=== PATIENT | female | born 1945 | race Caucasian/White ===

== ENCOUNTER 2018-10-16 16:05 | Observation (INO) ==
--- NOTE | 2018-10-16 17:00 | Emergency Department Note ---
Disposition Clinical Impression: Cellulitis of left ankle, Failure of outpatient treatment Disposition: Admitted As Inpatient Condition: Fair Time of Disposition: 17:59 General Adult HPI - General Chief complaint: ED Extremity Injury, Lower Stated complaint: Left foot cellulitis/infection Time Seen by Provider: 10/16/18 16:17 Source: patient Limitations: no limitations Nursing Notes Reviewed: Yes Vital Signs Reviewed: Yes - History of Present Illness HPI Narrative: Presents with redness and pain on the medial and posterior aspect of the left ankle which happened and began 7 weeks ago with an injury to this area and has seen wound care and been on multiple rounds of antibiotics including being seen here yesterday and placed on Augmentin however the redness has extended beyond the lines drawn around the ankle. No fevers or vomiting. No history of diabetes. No respiratory symptoms. Social history: Stopped smoking in the past, no alcohol Pain Scale: 10 - Related Data Home Medications Medication Instructions Recorded Confirmed Lisinopril [Zestril] 2.5 mg PO DAILY 12/07/14 09/10/18 Rosuvastatin Calcium [Crestor] 40 mg PO HS 12/07/14 09/10/18 Albuterol Sulfate [Proair Hfa] 2 puff IH Q4H PRN 03/21/18 09/10/18 Aspirin [Lo-Dose Aspirin EC] 81 mg PO HS 03/21/18 09/10/18 Levothyroxine [Synthroid] 50 mcg PO 0630 03/21/18 09/10/18 Meclizine HCl [Wal-Dram 2] 25 mg PO DAILY PRN 03/21/18 09/10/18 Ranitidine HCl [Acid Manager Assessment] 150 mg PO BID 03/21/18 09/10/18 Acetaminophen w/Cod 300-30 mg 1 each PO Q8HR PRN 09/10/18 09/10/18 [Tylenol w/Codeine #3] Fluticasone Propionate [Flonase 1 ml NS BID 09/10/18 09/10/18 Allergy Relief] Previous Rx's Medication Instructions Recorded Tamoxifen Citrate 20 mg PO DAILY #30 tablet 07/16/18 cephALEXin [Keflex] 500 mg PO QID #40 capsule 09/06/18 Amoxicillin/Clavulanate [Augmentin] 875 mg PO BIDWM #14 tablet 10/15/18 Allergies Allergy/AdvReac Type Severity Reaction Status Date / Time Erythromycin Base AdvReac Severe Palpitation Verified 09/10/18 19:23 s Sulfa (Sulfonamide AdvReac Severe Nausea Verified 09/10/18 19:23 Antibiotics) All systems ED: reviewed and negative except as stated. Past Medical History - Past Medical History Medical history: Reports: asthma, cancer, COPD, GERD, hyperlipidemia, hypertension Surgical history: Reports: cataract Psychiatric history: Reports: no psych history - Social History Smoking Status: Former smoker Smokeless Tobacco Status: No Alcohol use: Reports: none Drug use: Reports: none Physical Exam CONSTITUTIONAL: Alert and oriented X3, well-nourished, well appearing, in no apparent distress HEAD: Normocephalic; atraumatic. EYES: PERRL, no scleral icterus. NOSE: The nose is normal in appearance without rhinorrhea RESP: Normal chest excursion with respiration; breath sounds clear and equal bilaterally; no wheezes, rhonchi, or rales CARD: Regular rhythm, without murmurs, rub or gallop ABD: Non-distended; non-tender, soft,without rigidity, rebound or guarding SKIN: Normal for age and race; warm and dry; no apparent lesions Extremities: There is a open ulcerated area on the medial aspect of the left ankle extending around to the posterior aspect but there is no exposed bone. No purulent drainage from the area. There is surrounding erythema which has extended beyond the borders of the magic marker which is drawn on the ankle yesterday. I did discuss the case with Dr. Burgos as he did see the patient yesterday who feels the wound is worse regarding the cellulitis - General Limitations: no limitations General appearance: alert Course Vital Signs Temperature 98.0 F 10/16/18 16:06 Pulse Rate 87 10/16/18 16:06 Respiratory Rate 14 10/16/18 16:06 Blood Pressure 136/82 10/16/18 16:06 O2 Sat by Pulse Oximetry 96 10/16/18 16:06 Temperature 98.0 F 10/16/18 16:18 Pulse Rate 78 10/16/18 18:04 Respiratory Rate 18 10/16/18 18:04 Blood Pressure 147/61 10/16/18 18:04 O2 Sat by Pulse Oximetry 99 10/16/18 18:04 Oxygen Delivery Oxygen Delivery Room Air Medical Decision Making - MDM Narrative Medical decision making narrative: The patient has failed outpatient antibiotics and will be admitted. Prior to admission I did write for labs and also did an x-ray. The patient is able to walk but only on her toes. No systemic signs of infection. 1705 I did review the x-ray result. Labs are pending. I spoke with the hospitalist. The patient will be admitted to the service. I will start the patient on IV vancomycin. Looking at her old records looks like she has some evidence of leticia al failure with a creatinine level ranging from 1.2 up to 1.3 1745 - Medical Records Medical records reviewed: Yes I reviewed the patient's medical records. - Lab Data Lab results reviewed: Yes I reviewed the patient's lab results. Result diagrams: 10/16/18 17:13 10/16/18 17:13 Lab Results 10/16/18 10/16/18 Range/Units 17:13 17:13 WBC 6.9 (4.3-11.1) K/mcL RBC 3.46 L (3.82-4.97) M/mcL Hgb 11.0 L (11.5-15.4) g/dL Hct 35.4 (35.3-44.9) % MCV 102.3 H (83.0-100.0) fL MCH 31.8 (28.0-33.3) pg MCHC 31.1 L (31.6-35.5) g/dL RDW 12.4 (11.5-14.5) % Plt Count 186 (140-400) K/mcL MPV 9.4 (9.4-12.4) fL Sodium 142 (136-145) mEq/L Potassium 4.2 (3.5-5.1) mEq/L Chloride 105 (98-107) mEq/L Carbon Dioxide 24 (23-29) mEq/L BUN 19 (8-23) mg/dL Creatinine 1.29 H (0.60-1.20) mg/dL Est GFR ( Amer) 49 L (> 60) Est GFR (Non-Af Amer) 40 L (> 60) BUN/Creatinine Ratio 15 (6-26) Glucose 90 (70-105) mg/dL Calculated Osmolality 296 (280-300) Calcium 9.5 (8.6-10.3) mg/dL - Radiology Data Radiology results reviewed: Yes I reviewed the patient's radiology results.
[2018-10-16] MEDS ORDERED: MOM Conc 10 ML UD.LIQ PO PRN (17:42)
[2018-10-16] MEDS ORDERED: Acetaminophen 325 MG TABLET PO PRN (17:42)
[2018-10-16] MEDS ORDERED: Naloxone 0.4 MG/ML INJ IVP PRN (17:42)
[2018-10-16] MEDS ORDERED: *HR* Promethazine 25 MG/ML VIAL IVP PRN (17:42)
[2018-10-16] MEDS ORDERED: Mag Hydrox/Al Hydrox/Simeth 30 ML UDC PO PRN (17:42)
[2018-10-16] MEDS ORDERED: Ondansetron 4 MG/2 ML VIAL IVP PRN (17:42)
[2018-10-16 17:45] LABS: Calcium 9.5 mg/dL (8.6-10.3); Potassium 4.2 mEq/L (3.5-5.1)
[2018-10-16 17:48] LABS: Hematocrit 35.4 % (35.3-44.9); Mean Corpuscular HGB Conc 31.1 g/dL (31.6-35.5); Mean Corpuscular Hemoglobin 31.8 pg (28.0-33.3); Mean Corpuscular Volume 102.3 fL (83.0-100.0); Mean Platelet Volume 9.4 fL (9.4-12.4); Platelet Count 186 K/mcL (140-400); Red Blood Count 3.46 M/mcL (3.82-4.97); Red Cell Distribution Width 12.4 % (11.5-14.5); White Blood Count 6.9 K/mcL (4.3-11.1)
--- NOTE | 2018-10-16 18:09 | Internal Med History&Physical ---
Date of Encounter: 10/16/18 Time of Encounter: 18:01 Internal Medicine - H&P: HPI Admitted From: Home Plans for Post Hospital Care: Home History of present illness: Ms. Zamarripa is a 73 year old female with past medical history of chronic kidney di sease, hypertension, hyperlipidemia, and hypothyroidism presented with redness and swelling of left ankle. Patient suffered a trauma to the left ankle about 2 months ago, she has been seen at [facility], where the wound was cleaned and sutured. The stitches was removed later and she was seen by security delivery specialist there. She noticed redness on and off and has been tried several different oral abx. She was seen at this ED yesterday for left ankle cellulitis and was prescribed with oral Augmentin, however, she noticed increased the size of red area and decided to come back for further evaluation. She reported absence of purulent drainage, fever, chills, or night sweats. In the ED, patient vital signs were stable, x-ray of left ankle showed negative of foreign body or subcutaneous gas. She received 1 dose of vancomycin and will be admitted for further evaluation and management. She will be full code while in the hospital. Past Med Surg Social Fam HX - Past Medical History Medical history: asthma, cancer, COPD, GERD, hyperlipidemia, hypertension Additional medical history: hx br ca lt sided lumpectomy Psychiatric history: no psych history - Past Surgical History Surgical History: cataract Additional surgical history: lymph node removal, and lumpectomy on left breast. patial hysterectomy - Social History Smoking Status: Former smoker Smokeless Tobacco Status: No Alcohol use: none Drug use: none Internal Medicine - H&P: Meds Lisinopril [Zestril] 2.5 mg PO DAILY 12/07/14 [History] Rosuvastatin Calcium [Crestor] 40 mg PO HS 12/07/14 [History] Albuterol Sulfate [Proair Hfa] 2 puff IH Q4H PRN 03/21/18 [History] Aspirin [Lo-Dose Aspirin EC] 81 mg PO HS 03/21/18 [History] Levothyroxine [Synthroid] 50 mcg PO 0630 03/21/18 [History] Meclizine HCl [Wal-Dram 2] 25 mg PO DAILY PRN 03/21/18 [History] Ranitidine HCl [Acid Deicer Repairer Electric] 150 mg PO BID 03/21/18 [History] Tamoxifen Citrate 20 mg PO DAILY #30 tablet 07/16/18 [Rx] cephALEXin [Keflex] 500 mg PO QID #40 capsule 09/06/18 [Rx] Acetaminophen w/Cod 300-30 mg [Tylenol w/Codeine #3] 1 each PO Q8HR PRN 09/10/18 [History] Fluticasone Propionate [Flonase Allergy Relief] 1 ml NS BID 09/10/18 [History] Amoxicillin/Clavulanate [Augmentin] 875 mg PO BIDWM #14 tablet 10/15/18 [Rx] Allergy/AdvReac Type Severity Reaction Status Date / Time Erythromycin Base AdvReac Severe Palpitation Verified 09/10/18 19:23 s Sulfa (Sulfonamide AdvReac Severe Nausea Verified 09/10/18 19:23 Antibiotics) All Systems PM: A 10-system review of systems was performed and is negative for pertinent findings except as documented above in the HPI. Review of systems: REVIEW OF SYSTEMS: CONSTITUTIONAL: No weight loss, fever, chills, weakness or fatigue. HEENT: Eyes: No visual loss, blurred vision, double vision or yellow sclerae. Ears, Nose, Throat: No hearing loss, sneezing, congestion, runny nose or sore throat. SKIN: No rash or itching. CARDIOVASCULAR: No chest pain, chest pressure or chest discomfort. No palpitations or edema. RESPIRATORY: No shortness of breath, cough or sputum. GASTROINTESTINAL: No anorexia, nausea, vomiting or diarrhea. No abdominal pain or blood. GENITOURINARY: No dysuria, urgency, or frequency. NEUROLOGICAL: No headache, dizziness, syncope, paralysis, ataxia, numbness or tingling in the extremities. No change in bowel or bladder control. MUSCULOSKELETAL: see HPI. HEMATOLOGIC: No anemia, bleeding or bruising. LYMPHATICS: No enlarged nodes. No history of splenectomy. PSYCHIATRIC: No history of depression or anxiety. ENDOCRINOLOGIC: No reports of sweating, cold or heat intolerance. No polyuria or polydipsia. - Constitutional Vitals: Temp Pulse Resp BP Pulse Ox 98.0 F 87 14 136/82 96 10/16/18 16:18 10/16/18 16:18 10/16/18 16:18 10/16/18 16:18 10/16/18 16:18 General appearance: Present: A&O X 3 Exam: PHYSICAL EXAMINATION: GENERAL APPEARANCE: The patient is alert, oriented and in no acute distress. HEENT: Head is normocephalic. The sinuses are nontender. Pupils are equal and reactive. The nares are patent. Oropharynx clear without lesions. NECK: Supple without lymphadenopathy. HEART: Regular rate and rhythm. LUNGS: No crackles or wheezes are heard. ABDOMEN: Soft, nontender, nondistended with good bowel sounds heard. Inguinal area is normal. EXTREMITIES: left ankle wound with granulation tissue exposed to air located at the medial side of ankle, extended to the posterior. NEUROLOGICAL: Gross nonfocal. SKIN: Warm and dry without any rash. Internal Med - H&P Results - Labs CBC & Chem 7: 10/16/18 17:13 10/16/18 17:13 Labs: Short CBC 10/16/18 Range/Units 17:13 WBC 6.9 (4.3-11.1) K/mcL Hgb 11.0 L (11.5-15.4) g/dL Hct 35.4 (35.3-44.9) % Plt Count 186 (140-400) K/mcL BMP 10/16/18 17:13 Sodium 142 Potassium 4.2 Chloride 105 Carbon Dioxide 24 BUN 19 Creatinine 1.29 H Glucose 90 Calcium 9.5 - Impressions ITS Impressions Ankle X-Ray 10/16/18 16:51 IMPRESSION: 1. No evidence of soft tissue gas. No radiopaque foreign body. 2. No acute osseus abnormality. 3. Achilles tendinopathy with Ugo deformity of the calcaneus. D/ / 10/16/2018 17:12:21 Yuan Lilly MD / susanay Interpreting Provider: Yuan Lilly MD - Assessment and Plan (1) Ankle cellulitis Current Visit: Yes Status: Acute Assessment and plan: Blood culture obtained. CBC and BMP ordered in the ED. Continue IV vancomycin, pharmacy to dose based on renal function. Wound care consult. (2) Wound of ankle Current Visit: No Status: Acute Assessment and plan: Same as above. Qualifiers: Encounter type: initial encounter Laterality: left Qualified Code(s): S91.002A - Unspecified open wound, left ankle, initial encounter (3) Essential hypertension Current Visit: No Status: Chronic Assessment and plan: Blood pressure controlled currently, continue home medication. (4) Mixed hyperlipidemia Current Visit: No Status: Chronic Assessment and plan: Continue home medication. (5) CKD (chronic kidney disease), stage III Current Visit: No Status: Chronic Assessment and plan: Stable, creatinine at the baseline. (6) Hypothyroidism Current Visit: No Status: Acute Assessment and plan: Stable, continue home medication. Qualifiers: Hypothyroidism type: unspecified Qualified Code(s): E03.9 - Hypothyroidism, unspecified (7) Breast cancer Current Visit: No Status: Acute Assessment and plan: Stable, continue home medication tamoxifen Qualifiers: Breast location: unspecified site of breast Estrogen receptor status: unspecified Patient sex: female Laterality: unspecified laterality Qualified Code(s): C50.919 - Malignant neoplasm of unspecified site of unspecified female breast (8) DVT prophylaxis Current Visit: Yes Status: Acute Assessment and plan: Heparin subcutaneous - Time Spent With Patient Total time spent is greater than 50% in coordination of care (as documented) at patient's floor/unit and/or counseling patient: Greater than 35 minutes
[2018-10-16] MEDS: *HR* Heparin 5,000 UNIT/ML VIAL SQ SCH (21:51)
[2018-10-17] MEDS: *HR* Heparin 5,000 UNIT/ML VIAL SQ SCH ×2 (06:42→17:53)
--- NOTE | 2018-10-17 09:22 | Internal Med Progress Note ---
Hospitalist Progress Note - Encounter Date of Encounter: 10/17/18 Time of Encounter: 09:49 - Subjective Interval History: Patient seen and examined this morning except. No acute overnight events. Afebrile hemodynamically stable. Denies any fever or chills nausea vomiting or diarrhea. Still has some pain in the right lower extremity associated redness and swelling of ankle. - Exam Vitals: Temp Pulse Resp BP Pulse Ox 98.2 F 74 16 116/72 95 10/17/18 07:12 10/17/18 07:12 10/17/18 07:12 10/17/18 07:12 10/17/18 07:12 Exam: General: In no acute distress. Respiratory exam: CTAB. no accessory muscle use, rales, rhonchi, wheezes Cardiovascular exam: RRR, +S1, +S2. no murmur, gallop, rubs. GI/Abdominal exam: Non-tender, Non-distended, normal bowel sounds, soft, no peritoneal signs. Extremities exam: pulses palpable in b/l lower extremities. no calf tenderness. left ankle wound with granulation tissue at the medial side of ankle with associated warmth, redness and swelling. minimal drainage. 6x8 cm Neurological exam: CN II-XII intact, AO X3, no focal deficits. Skin exam: as above - Assessment and Plan (1) Breast cancer Current Visit: No Status: Acute (2) Hypothyroidism Current Visit: No Status: Acute (3) CKD (chronic kidney disease), stage III Current Visit: No Status: Chronic (4) Essential hypertension Current Visit: No Status: Chronic (5) Mixed hyperlipidemia Current Visit: No Status: Chronic (6) Wound of ankle Current Visit: No Status: Acute (7) Ankle cellulitis Current Visit: Yes Status: Acute (8) DVT prophylaxis Current Visit: Yes Status: Acute - Summary of Assessment and Plan Summary of Assessment and Plan: Assessment Acute Ankle cellulitis Lt ankle wound Chronic HTN HLD CKD3 Hypothyroid h/o breast cancer Plan - Started on vancomycin empirically. recently treated with augmentin which she took for day. Also got cipro before about 1 month ago. appears she was also prescribe docy and keflex. - Blood culture obtained. Will get wound culture. Last one grew E fecalis on 09/13 - Continue IV vancomycin. Will start cefepime as well for now given CKD. Obtain CT of foot. - Wound care consult. - c/w home lisinopril, thyroxin, tamoxifen, aspirin, crestor - Heparin subcutaneous for dvt ppx. Internal Medicine: Result - Labs CBC & Chem 7: 10/16/18 17:13 10/16/18 17:13 Labs: Short CBC 10/16/18 Range/Units 17:13 WBC 6.9 (4.3-11.1) K/mcL Hgb 11.0 L (11.5-15.4) g/dL Hct 35.4 (35.3-44.9) % Plt Count 186 (140-400) K/mcL BMP 10/16/18 17:13 Sodium 142 Potassium 4.2 Chloride 105 Carbon Dioxide 24 BUN 19 Creatinine 1.29 H Glucose 90 Calcium 9.5 - Impressions Impressions Ankle X-Ray 10/16/18 16:51 IMPRESSION: 1. No evidence of soft tissue gas. No radiopaque foreign body. 2. No acute osseus abnormality. 3. Achilles tendinopathy with Ugo deformity of the calcaneus. D/ / 10/16/2018 17:12:21 Yuan Lilly MD / [email or web address] Interpreting Provider: Yuan Lilly MD Consult Discharge Plan - Plan Referrals: Zohra Fields APN [Primary Care Provider] - (1) Breast cancer Qualifiers: Breast location: unspecified site of breast Estrogen receptor status: unspecified Patient sex: female Laterality: unspecified laterality Qualified Code(s): C50.919 - Malignant neoplasm of unspecified site of unspecified female breast (2) Hypothyroidism Qualifiers: Hypothyroidism type: unspecified Qualified Code(s): E03.9 - Hypothyroidism, unspecified (6) Wound of ankle Qualifiers: Encounter type: initial encounter Laterality: left Qualified Code(s): S91.002A - Unspecified open wound, left ankle, initial encounter
[2018-10-17] MEDS: Cefepime HCl 1,000 MG in Water for inj. (sterile) 10 ML IVP SCH ×2 (10:47→23:10)
[2018-10-17] MEDS ORDERED: 0.9 % Sodium Chloride 1,000 ML IVC SCH (11:45)
[2018-10-17] MEDS ORDERED: Cefepime HCl 1,000 MG in Water for inj. (sterile) 10 ML IVP SCH (16:00)
[2018-10-17] MEDS: Aspirin Enteric Coated 81 MG Tablet PO SCH (20:30)
[2018-10-17] MEDS ORDERED: Famotidine 20 MG TABLET PO SCH (21:00)
[2018-10-18 05:19] LABS: Basophils % 0.8 %; Eosinophils # 0.4 K/mcL (0.0-0.6); Eosinophils % 6.9 %; Hematocrit 30.7 % (35.3-44.9); Hemoglobin 9.9 g/dL (11.5-15.4); Immature Granulocytes % 0.4 % (0-4); Lymphocytes % 38.5 %; Mean Corpuscular HGB Conc 32.2 g/dL (31.6-35.5); Mean Corpuscular Hemoglobin 31.8 pg (28.0-33.3); Mean Corpuscular Volume 98.7 fL (83.0-100.0); Mean Platelet Volume 9.6 fL (9.4-12.4); Monocytes # 0.7 K/mcL (0.0-1.3); Monocytes % 12.4 %; Neutrophils # 2.2 K/mcL (1.6-8.9); Platelet Count 176 K/mcL (140-400); Red Blood Count 3.11 M/mcL (3.82-4.97); Red Cell Distribution Width 12.4 % (11.5-14.5); White Blood Count 5.3 K/mcL (4.3-11.1)
[2018-10-18 05:33] LABS: Calcium 8.3 mg/dL (8.6-10.3); Potassium 3.9 mEq/L (3.5-5.1)
[2018-10-18] MEDS: *HR* Heparin 5,000 UNIT/ML VIAL SQ SCH ×2 (06:16→17:13)
--- NOTE | 2018-10-18 09:18 | Internal Med Progress Note ---
Hospitalist Progress Note - Encounter Date of Encounter: 10/18/18 Time of Encounter: 09:18 - Subjective Interval History: Patient seen and examined this morning and was admitted overnight events. Redness and swelling decreasing. Pain much improved. Denies any fever or chills nausea vomiting or diarrhea. - Exam Vitals: Temp Pulse Resp BP Pulse Ox 98.1 F 70 15 115/65 96 10/18/18 06:19 10/18/18 06:19 10/18/18 06:19 10/18/18 06:19 10/18/18 06:19 Exam: General: In no acute distress. Respiratory exam: CTAB. no accessory muscle use, rales, rhonchi, wheezes Cardiovascular exam: RRR, +S1, +S2. no murmur, gallop, rubs. GI/Abdominal exam: Non-tender, Non-distended, normal bowel sounds, soft, no peritoneal signs. Extremities exam: pulses palpable in b/l lower extremities. no calf tenderness. warmth, redness and swelling decreased. 6x8 cm Neurological exam: CN II-XII intact, AO X3, no focal deficits. Skin exam: as above - Assessment and Plan (1) Breast cancer Current Visit: No Status: Acute (2) Hypothyroidism Current Visit: No Status: Acute (3) CKD (chronic kidney disease), stage III Current Visit: No Status: Chronic (4) Essential hypertension Current Visit: No Status: Chronic (5) Mixed hyperlipidemia Current Visit: No Status: Chronic (6) Wound of ankle Current Visit: No Status: Acute (7) Ankle cellulitis Current Visit: Yes Status: Acute (8) DVT prophylaxis Current Visit: Yes Status: Acute - Summary of Assessment and Plan Summary of Assessment and Plan: Assessment Acute Ankle cellulitis Lt ankle wound Chronic HTN HLD CKD3 Hypothyroid h/o breast cancer Plan - Started on vancomycin empirically. recently treated with augmentin which she took for day. Also got cipro before about 1 month ago. appears she was also prescribe doxy and keflex. - f/u Blood culture NGTD. wound culture growing GPC. Last one grew E fecalis on 09/13. f/u final results - Continue IV vancomycin and cefepime empirically for now. Monitor renal function. CT without osteomyelitis or abscess. - Wound care consulted - c/w home lisinopril, thyroxin, tamoxifen, aspirin, crestor - Heparin subcutaneous for dvt ppx. Internal Medicine: Result - Labs CBC & Chem 7: 10/18/18 04:36 10/18/18 04:36 Labs: Short CBC 10/18/18 Range/Units 04:36 WBC 5.3 (4.3-11.1) K/mcL Hgb 9.9 L (11.5-15.4) g/dL Hct 30.7 L (35.3-44.9) % Plt Count 176 (140-400) K/mcL Neutrophils # 2.2 (1.6-8.9) K/mcL BMP 10/18/18 04:36 Sodium 143 Potassium 3.9 Chloride 115 H Carbon Dioxide 21 L BUN 20 Creatinine 1.37 H Glucose 110 H Calcium 8.3 L - Impressions Impressions Foot CT 10/17/18 10:06 IMPRESSION: 1. No acute periostitis or bony destruction. 2. No abscess or foreign body in the region of the heel soft tissues. 3. Mild edema in the soft tissues superficial to the Achilles tendon. 4. 1.7 cm area of fluid on the plantar soft tissues at the level of the 1st MTP joint favoring adventitial bursa. Correlate for any wound in this location. D/ / 10/17/2018 13:00:28 Yuan Lilly MD / Jazzy Guerra Interpreting Provider: Yuan Lilly MD Consult Discharge Plan - Plan Referrals: Zohra Fields APN [Primary Care Provider] - (1) Breast cancer Qualifiers: Breast location: unspecified site of breast Estrogen receptor status: unspecified Patient sex: female Laterality: unspecified laterality Qualified Code(s): C50.919 - Malignant neoplasm of unspecified site of unspecified female breast (2) Hypothyroidism Qualifiers: Hypothyroidism type: unspecified Qualified Code(s): E03.9 - Hypothyroidism, unspecified (6) Wound of ankle Qualifiers: Encounter type: initial encounter Laterality: left Qualified Code(s): S91.002A - Unspecified open wound, left ankle, initial encounter
[2018-10-18] MEDS: Famotidine 20 MG TABLET PO SCH (09:37)
[2018-10-18] MEDS ORDERED: 0.9 % Sodium Chloride 1,000 ML IVC SCH (11:15)
[2018-10-18] MEDS: Cefepime HCl 1,000 MG in Water for inj. (sterile) 10 ML IVP SCH (12:54)
[2018-10-18] MEDS: Silvasorb 44.4 ML TUBE TP SCH (17:13)
[2018-10-18] MEDS: Aspirin Enteric Coated 81 MG Tablet PO SCH (20:57)
[2018-10-19 02:18] LABS: Basophils % 0.3 %; Eosinophils # 0.3 K/mcL (0.0-0.6); Eosinophils % 5.4 %; Hematocrit 31.2 % (35.3-44.9); Hemoglobin 10.1 g/dL (11.5-15.4); Immature Granulocytes % 0.2 % (0-4); Lymphocytes # 1.9 K/mcL (0.6-4.6); Lymphocytes % 30.6 %; Mean Corpuscular HGB Conc 32.4 g/dL (31.6-35.5); Mean Corpuscular Hemoglobin 31.9 pg (28.0-33.3); Mean Corpuscular Volume 98.4 fL (83.0-100.0); Mean Platelet Volume 9.1 fL (9.4-12.4); Monocytes # 0.7 K/mcL (0.0-1.3); Monocytes % 11.3 %; Neutrophils # 3.3 K/mcL (1.6-8.9); Platelet Count 199 K/mcL (140-400); Red Blood Count 3.17 M/mcL (3.82-4.97); Red Cell Distribution Width 12.2 % (11.5-14.5); Segmented Neutrophils % 52.2 %; White Blood Count 6.3 K/mcL (4.3-11.1)
[2018-10-19 02:36] LABS: Calcium 8.6 mg/dL (8.6-10.3)
[2018-10-19] MEDS: *HR* Heparin 5,000 UNIT/ML VIAL SQ SCH ×2 (05:49→17:02)
[2018-10-19] MEDS: Ringers Solution, Lactated 1,000 ML IVC SCH ×2 (09:10→20:10)
[2018-10-19] MEDS: Silvasorb 44.4 ML TUBE TP SCH (09:10)
[2018-10-19] MEDS: Famotidine 20 MG TABLET PO SCH (09:10)
[2018-10-19 17:57] LABS: Calcium 9.3 mg/dL (8.6-10.3)
[2018-10-19] MEDS: Aspirin Enteric Coated 81 MG Tablet PO SCH (20:08)
[2018-10-19] MEDS: traMADol 50 MG TABLET PO PRN (22:07)
[2018-10-20] MEDS: *HR* Heparin 5,000 UNIT/ML VIAL SQ SCH (05:24)
[2018-10-20] MEDS: traMADol 50 MG TABLET PO PRN (05:28)
[2018-10-20] MEDS ORDERED: Ringers Solution, Lactated 1,000 ML IVC SCH (06:15)
[2018-10-20 07:01] VITALS: BP 109/72
--- NOTE | 2018-10-20 09:28 | Internal Med Progress Note ---
Hospitalist Progress Note - Encounter Date of Encounter: 10/19/18 Time of Encounter: 09:26 - Subjective Interval History: Section sheen and examined this morning at bedside. No acute overnight events. Feeling much better. Redness and swelling significantly improving. - Exam Vitals: Temp Pulse Resp BP Pulse Ox 97.6 F 80 15 109/72 94 10/20/18 07:00 10/20/18 07:00 10/20/18 07:00 10/20/18 07:00 10/20/18 07:00 Exam: General: In no acute distress. Respiratory exam: CTAB. no accessory muscle use, rales, rhonchi, wheezes Cardiovascular exam: RRR, +S1, +S2. no murmur, gallop, rubs. GI/Abdominal exam: Non-tender, Non-distended, normal bowel sounds, soft, no peritoneal signs. Extremities exam: pulses palpable in b/l lower extremities. no calf tenderness. warmth, redness and swelling decreased. 6x8 cm . wound with granulation tissue Neurological exam: CN II-XII intact, AO X3, no focal deficits. Skin exam: as above - Assessment and Plan (1) Breast cancer Current Visit: No Status: Acute (2) Hypothyroidism Current Visit: No Status: Acute (3) CKD (chronic kidney disease), stage III Current Visit: No Status: Chronic (4) Essential hypertension Current Visit: No Status: Chronic (5) Mixed hyperlipidemia Current Visit: No Status: Chronic (6) Wound of ankle Current Visit: No Status: Acute (7) Ankle cellulitis Current Visit: Yes Status: Acute (8) DVT prophylaxis Current Visit: Yes Status: Acute - Summary of Assessment and Plan Summary of Assessment and Plan: Assessment Acute Ankle cellulitis Lt ankle wound Chronic HTN HLD CKD3 Hypothyroid h/o breast cancer Plan - c/w vancomycin for now. Will plan for DC today once final sensitivity back. Spoke with micro that would be reported by afternoon. Internal Medicine: Result - Labs CBC & Chem 7: 10/19/18 02:06 10/19/18 17:12 Labs: BMP 10/19/18 17:12 Sodium 138 Potassium 4.0 Chloride 109 H Carbon Dioxide 22 L BUN 19 Creatinine 1.39 H Glucose 85 Calcium 9.3 Consult Discharge Plan - Plan Referrals: Zohra Fields APN [Primary Care Provider] - (1) Breast cancer Qualifiers: Breast location: unspecified site of breast Estrogen receptor status: unspecified Patient sex: female Laterality: unspecified laterality Qualified Code(s): C50.919 - Malignant neoplasm of unspecified site of unspecified female breast (2) Hypothyroidism Qualifiers: Hypothyroidism type: unspecified Qualified Code(s): E03.9 - Hypothyroidism, unspecified (6) Wound of ankle Qualifiers: Encounter type: initial encounter Laterality: left Qualified Code(s): S91.002A - Unspecified open wound, left ankle, initial encounter
[2018-10-20] MEDS: Famotidine 20 MG TABLET PO SCH (09:29)
--- NOTE | 2018-10-20 09:31 | Discharge Summary ---
- NOTES TO OUTPATIENT PROVIDER Notes to Outpatient Provider: Patient will need to follow-up with PCP within 1-2 weeks and continue wound care. She will need to follow up with BMP within a week to monitor renal function. Patient appears to have CKD and is not following any nephrology. Should consider outpatient nephrology follow-up. Lisinopril has been held for now until follow-up BMP as blood pressure once on lower end. Orders not resulted at time of discharge: Pending orders 10/16/18 17:12 Culture,Blood [BC] Stat Date of Encounter: 10/20/18 Time of Encounter: 09:28 - Discharge Diagnosis (1) Ankle cellulitis Priority: Primary Status: Acute (2) Breast cancer Priority: Secondary Status: Acute Qualifiers: Breast location: unspecified site of breast Estrogen receptor status: unspecified Patient sex: female Laterality: unspecified laterality Qualified Code(s): C50.919 - Malignant neoplasm of unspecified site of unspecified female breast (3) Hypothyroidism Priority: Secondary Status: Acute Qualifiers: Hypothyroidism type: unspecified Qualified Code(s): E03.9 - Hypothyroidism, unspecified (4) CKD (chronic kidney disease), stage III Priority: Secondary Status: Chronic (5) Essential hypertension Priority: Secondary Status: Chronic (6) Mixed hyperlipidemia Priority: Secondary Status: Chronic (7) Wound of ankle Priority: Primary Status: Acute Qualifiers: Encounter type: initial encounter Laterality: left Qualified Code(s): S91.002A - Unspecified open wound, left ankle, initial encounter (8) DVT prophylaxis Priority: Secondary Status: Acute Hospital course: Ms. Zamarripa is a 73 year old female with past medical history of hypertension, hyperlipidemia, hypothyroidism came in with redness and swelling and pain on the left ankle with wound. Patient had a course of Augmentin as outpatient as well as she mentioned some dose of Cipro and Keflex and Doxy for on known mode of days. She was admitted to start IV antibiotics. She was started on IV vancomyc in. blood and wound cultures were collected. CT was performed which did not show any fluid collection or osteomyelitis. Blood cultures remained negative on day 4. She did have component of chronic kidney disease with GFR slightly worsening in hospital and improved with IV fluids. Wound culture was obtained which grew MRSA which was sensitive to clindamycin and doxycycline. She will be discharged on 10 days of doxycycline. Advised to avoid any milk of Magnesia or any laxatives for now. She will need to follow up for BMP in the week. Lisinopril held for now. Will need PCP and nephrology follow up outpatient as well as wound care. Discharge discussed with: patient, family, nurse - Time Spent with Patient Total time spent providing and/or coordinating discharge services: Time spent: Greater than 30 minutes (35) - Discharge Medications Prescriptions: New Doxycycline 100 mg PO BID 10 Days #20 capsule Continued Rosuvastatin Calcium [Crestor] 40 mg PO QAM Levothyroxine [Synthroid] 50 mcg PO QAM Ranitidine HCl [Acid Manager Actuarial] 150 mg PO BID Albuterol Sulfate [Proair Hfa] 2 puff IH Q4H PRN PRN Reason: Shortness Of Breath Meclizine HCl [Wal-Dram 2] 25 mg PO TID PRN PRN Reason: DIZZINESS/NAUSEA/VOMITING Tamoxifen Citrate 20 mg PO DAILY #30 tablet Amoxicillin/Clavulanate [Augmentin] 875 mg PO BIDWM #14 tablet Aspirin 81 mg PO HS Fluticasone Propionate Nasal [Flonase] 2 spray NS DAILY PRN PRN Reason: Allergy Symptoms Acetaminophen [Tylenol] 500 - 1,000 mg PO DAILY PRN PRN Reason: Pain Discontinued Lisinopril 2.5 mg PO DAILY Home Medications: Rosuvastatin Calcium [Crestor] 40 mg PO QAM 12/07/14 [History] Albuterol Sulfate [Proair Hfa] 2 puff IH Q4H PRN 03/21/18 [History] Levothyroxine [Synthroid] 50 mcg PO QAM 03/21/18 [History] Meclizine HCl [Wal-Dram 2] 25 mg PO TID PRN 03/21/18 [History] Ranitidine HCl [Acid Manager Actuarial] 150 mg PO BID 03/21/18 [History] Tamoxifen Citrate 20 mg PO DAILY #30 tablet 07/16/18 [Rx] Amoxicillin/Clavulanate [Augmentin] 875 mg PO BIDWM #14 tablet 10/15/18 [Rx] Acetaminophen [Tylenol] 500 - 1,000 mg PO DAILY PRN 10/17/18 [History] Aspirin 81 mg PO HS 10/17/18 [History] Fluticasone Propionate Nasal [Flonase] 2 spray NS DAILY PRN 10/17/18 [History] Doxycycline 100 mg PO BID 10 Days #20 capsule 10/20/18 [Rx] Allergies/Adverse Reactions: Allergy/AdvReac Type Severity Reaction Status Date / Time Erythromycin Base AdvReac Severe Palpitation Verified 10/17/18 20:59 s Sulfa (Sulfonamide AdvReac Severe Gastrointestinal Verified 10/17/18 20:59 Antibiotics) Upset Date of admission: 10/16/18 17:44 Primary care physician: Zohra Fields APN Consults: 10/16/18 18:00 Consult to Wound Care [CONS] Routine Reason for Consult: left ankle wound Call Completed: Yes 10/18/18 08:00 Consult to Rotary Drill Operator [CONS] Routine Reason for SW Consult: Possible needs upon discharge Discharging clinician: Irma Medellin - Constitutional Vitals: Temp Pulse Resp BP Pulse Ox 97.6 F 80 15 109/72 94 10/20/18 07:00 10/20/18 07:00 10/20/18 07:00 10/20/18 07:00 10/20/18 07:00 Exam: General: In no acute distress. Respiratory exam: CTAB. no accessory muscle use, rales, rhonchi, wheezes Cardiovascular exam: RRR, +S1, +S2. no murmur, gallop, rubs. GI/Abdominal exam: Non-tender, Non-distended, normal bowel sounds, soft, no peritoneal signs. Extremities exam: pulses palpable in b/l lower extremities. no calf tenderness. warmth, redness and swelling decreased. 6x8 cm wound with granulation tissue Neurological exam: CN II-XII intact, AO X3, no focal deficits. Skin exam: as above - Patient Status Disposition: Home, Self-Care Condition: Fair - Discharge Instructions Follow Up With: Zohra Fields APN [Primary Care Provider] - - Diet and Activity Activity: increase activity as tolerated
[2018-10-20] MEDS ORDERED: Aminoglycoside Consult 1 EACH MC ONE (13:14)
== END 2018-10-20 13:15 | disposition home or self-care (01) ==
LOC: 3ANU 16:05 → EMEROOARM 16:05 → SUATTDRO 17:44 → 3ANU 18:38
PROVIDERS: ADMIT Internal Medicine; ATTEND Internal Medicine

== ENCOUNTER 2020-06-18 23:24 | Observation (INO) ==
[2020-06-19] MEDS ORDERED: Aspirin 81 MG TAB.CHEW PO ONE (00:01)
[2020-06-19 01:05] LABS: Basophils % 0.4 %; Eosinophils # 0.3 K/mcL (0.0-0.6); Eosinophils % 3.7 %; Hematocrit 40.1 % (35.3-44.9); Hemoglobin 12.9 g/dL (11.5-15.4); Immature Granulocytes % 0.4 % (0-4); Lymphocytes # 1.9 K/mcL (0.6-4.6); Lymphocytes % 23.7 %; Mean Corpuscular HGB Conc 32.2 g/dL (31.6-35.5); Mean Corpuscular Volume 96.4 fL (83.0-100.0); Mean Platelet Volume 9.5 fL (9.4-12.4); Monocytes # 0.8 K/mcL (0.0-1.3); Monocytes % 10.6 %; Neutrophils # 4.8 K/mcL (1.6-8.9); Platelet Count 203 K/mcL (140-400); Red Blood Count 4.16 M/mcL (3.82-4.97); Red Cell Distribution Width 12.2 % (11.5-14.5); Segmented Neutrophils % 61.2 %; White Blood Count 7.8 K/mcL (4.3-11.1)
[2020-06-19 01:16] LABS: BUN/Creatinine Ratio 11 (6-26); Blood Urea Nitrogen 14 mg/dL (8-23); Calcium 9.1 mg/dL (8.6-10.3); Carbon Dioxide 22 mEq/L (23-29); Chloride 113 mEq/L (98-107); Glucose 114 mg/dL (70-105); Osmolality,Calculated 301 (280-300); Potassium 3.7 mEq/L (3.5-5.1); Sodium 145 mEq/L (136-145); eGFR For African Americans 50 (> 60); eGFR For Non-African Americans 42 (> 60)
[2020-06-19 01:18] LABS: Troponin I < 0.03 ng/mL (< 0.04)
[2020-06-19] MEDS ORDERED: *HR* Heparin 5,000 UNIT/ML VIAL IVP ONE (03:38)
[2020-06-19] MEDS ORDERED: *HR* Heparin 5,000 UNIT/ML VIAL IVP PRN ×2 (03:38)
[2020-06-19] MEDS ORDERED: Ondansetron 4 MG/2 ML VIAL IVP PRN (03:41)
[2020-06-19] MEDS ORDERED: Naloxone 0.4 MG/ML INJ IVP PRN (03:41)
[2020-06-19] MEDS ORDERED: Perflutren Lipid Microsphere 1.3 ML in 0.9 % Sodium Chloride 8.7 ML IVP PRN (04:00)
[2020-06-19] MEDS ORDERED: Nitroglycerin 0.4 MG TAB.SUBL SL PRN (04:01)
[2020-06-19] MEDS: Heparin 25,000UNIT/250ML 1/2NS 25,000 UNIT/250 ML IV.SOLN IVC SCH (04:04)
[2020-06-19 04:35] LABS: Heparin anti-factor XA UFH < 0.04 IU/mL (0.30-0.70)
[2020-06-19 04:36] LABS: Prothrombin Time 11.3 Seconds (9.4-12.1)
[2020-06-19 04:38] LABS: D-Dimer 834 ng/mLFEU (0-500)
[2020-06-19 05:54] LABS: Hematocrit 42.3 % (35.3-44.9); Hemoglobin 13.4 g/dL (11.5-15.4); Mean Corpuscular HGB Conc 31.7 g/dL (31.6-35.5); Mean Corpuscular Volume 97.9 fL (83.0-100.0); Mean Platelet Volume 9.4 fL (9.4-12.4); Platelet Count 197 K/mcL (140-400); Red Blood Count 4.32 M/mcL (3.82-4.97); Red Cell Distribution Width 12.3 % (11.5-14.5); White Blood Count 7.2 K/mcL (4.3-11.1)
[2020-06-19 06:10] LABS: Magnesium 2.2 mg/dL (1.6-2.6); Phosphorous 3.9 mg/dL (2.7-4.5)
[2020-06-19] MEDS ORDERED: Aspirin 81 MG TAB.CHEW PO SCH (21:00)
[2020-06-20 02:14] LABS: Hematocrit 40.6 % (35.3-44.9); Mean Corpuscular Hemoglobin 31.3 pg (28.0-33.3); Mean Corpuscular Volume 97.8 fL (83.0-100.0); Mean Platelet Volume 9.1 fL (9.4-12.4); Platelet Count 179 K/mcL (140-400); Red Blood Count 4.15 M/mcL (3.82-4.97); Red Cell Distribution Width 12.3 % (11.5-14.5); White Blood Count 6.3 K/mcL (4.3-11.1)
[2020-06-20 02:33] LABS: Calcium 9.1 mg/dL (8.6-10.3); Potassium 3.8 mEq/L (3.5-5.1)
[2020-06-20 07:07] VITALS: BP 104/66
[2020-06-20] MEDS ORDERED: *HR* Rivaroxaban 15 MG TABLET PO ONE (08:32)
[2020-06-20] MEDS: Heparin 25,000UNIT/250ML 1/2NS 25,000 UNIT/250 ML IV.SOLN IVC SCH (09:06)
== END 2020-06-20 11:14 | disposition home or self-care (01) ==
LOC: EMEROOARM 23:24 → 3BNU 23:24 → SUATTDRO 06-19 03:29 → 3BNU 06-19 04:38
PROVIDERS: ADMIT Internal Medicine; ATTEND Family Medicine

== ENCOUNTER 2021-08-08 15:23 | Observation (INO) ==
[2021-08-08] MEDS ORDERED: Naloxone 0.4 MG/ML INJ IVP PRN (18:07)
[2021-08-08] MEDS ORDERED: Ondansetron 4 MG/2 ML VIAL IVP PRN (18:07)
[2021-08-08] MEDS ORDERED: Perflutren Lipid Microsphere 1.3 ML in 0.9 % Sodium Chloride 8.7 ML IVP PRN (18:10)
[2021-08-08 20:43] LABS: Adenovirus Not Detected (Not Detect); Bordetella Pertussis Not Detected (Not Detect); Chlamydophila pneumoniae Not Detected (Not Detect); Coronavirus 229E Not Detected (Not Detect); Coronavirus HKU1 Not Detected (Not Detect); Coronavirus NL63 Not Detected (Not Detect); Coronavirus OC43 Not Detected (Not Detect); Human Metapneumovirus Not Detected (Not Detect); Human Rhinovirus/Enterovirus Not Detected (Not Detect); Influenza A Subtype 2009 H1 Not Detected (Not Detect); Influenza B Not Detected (Not Detect); Mycoplasma pneumoniae Not Detected (Not Detect); Parainfluenza Virus 1 Not Detected (Not Detect); Parainfluenza Virus 2 Not Detected (Not Detect); Parainfluenza Virus 3 Not Detected (Not Detect); Parainfluenza Virus 4 Not Detected (Not Detect); Respiratory Syncytial Virus Not Detected (Not Detect); SARS-CoV-2 Not Detected (Not Detect)
[2021-08-09] MEDS ORDERED: Acetaminophen 325 MG TABLET PO PRN (02:53)
[2021-08-09] MEDS ORDERED: Melatonin 3 MG TABLET PO PRN (02:53)
[2021-08-09 03:32] LABS: Basophils % 0.3 %; Eosinophils # 0.2 K/mcL (0.0-0.6); Eosinophils % 2.3 %; Hematocrit 33.1 % (35.3-44.9); Immature Granulocytes % 0.3 % (0-4); Lymphocytes # 1.2 K/mcL (0.6-4.6); Lymphocytes % 15.5 %; Mean Corpuscular HGB Conc 33.2 g/dL (31.6-35.5); Mean Corpuscular Volume 93.2 fL (83.0-100.0); Mean Platelet Volume 9.4 fL (9.4-12.4); Monocytes # 1.1 K/mcL (0.0-1.3); Monocytes % 14.2 %; Neutrophils # 5.1 K/mcL (1.6-8.9); Platelet Count 185 K/mcL (140-400); Red Blood Count 3.55 M/mcL (3.82-4.97); Red Cell Distribution Width 13.5 % (11.5-14.5); Segmented Neutrophils % 67.4 %; White Blood Count 7.5 K/mcL (4.3-11.1)
[2021-08-09 04:04] LABS: Calcium 8.5 mg/dL (8.6-10.3); Potassium 3.4 mEq/L (3.5-5.1)
[2021-08-09 07:30] VITALS: BP 114/62; PULSE 75; TEMP 97.3; O2SAT 91
[2021-08-09] MEDS ORDERED: cefTRIAXone 1,000 MG in 0.9 % Sodium Chloride 10 ML IVP SCH (09:00)
== END 2021-08-09 09:10 | disposition home or self-care (01) ==
LOC: 3NENU
PROVIDERS: ADMIT Student in an Organized Health Care Education/Training Program; ATTEND Student in an Organized Health Care Education/Training Program